=== PATIENT | male | born 1975 | race Caucasian/White ===

== ENCOUNTER 2019-09-16 23:10 | Emergency (ER) | payer SELFPAY ==
--- NOTE | 2019-09-16 23:18 | DI.RAD.S_ITS ---
PROCEDURE: XR CHEST 1V INDICATIONS: chest pain TECHNIQUE: One view of the chest was acquired. COMPARISON: None. FINDINGS: Surgical changes and devices: None. Lungs and pleura: Lungs are clear. Mildly decreased lung volumes. No pleural effusions or pneumothorax. Mediastinum: Mediastinal contours appear normal. Heart size is normal. Bones and chest wall: No suspicious bony lesions. Degenerative changes of the spine and shoulders. Overlying soft tissues appear unremarkable. IMPRESSION: No acute cardiopulmonary findings. Dictated by: Anthony Youngblood M.D. on 09/17/2019 at 7:43 Approved by: Anthony Youngblood M.D. on 09/17/2019 at 7:44
[2019-09-16 23:19] VITALS: BP 153/84; PULSE 88; RESP 21; TEMP 37.2; O2SAT 97; BMI 36.3
[2019-09-16 23:35] LABS: Add Manual Diff / Slide Review NO; Basophils Absolute Auto 100 /uL (0-100); Basophils Percent Auto 0.8 % (0-2); Eosinophils Absolute Auto 200 /uL (0-450); Eosinophils Percent Auto 2.3 % (2-4); Hematocrit 39.5 % (41-53); Hemoglobin 13.9 g/dL (13.5-17.5); Lymphocytes Absolute Auto 2900 /uL (1100-4500); Lymphocytes Percent Auto 26.8 % (25-40); Mean Corpuscular HGB Conc 35.3 % (30-36); Mean Corpuscular Hemoglobin 33.2 PG (26-34); Monocytes Absolute Auto 1000 /uL (0-900); Monocytes Percent Auto 9.7 % (3-14); Neutrophils Absolute Auto 6400 /uL (1500-7000); Neutrophils Percent Auto 60.4 % (50-75); Platelet Count 300 X10^3/uL (150-400); Red Cell Distribution Width 12.1 % (11.6-14.8); White Blood Cell Count 10.6 X10^3/uL (4.5-11.0)
[2019-09-16 23:40] LABS: Prothrombin Time 11.4 SECONDS (10.1-12.7)
[2019-09-16 23:43] LABS: PTT Partial Thromboplastin Tim 31 SECONDS (26.4-36.2)
[2019-09-16 23:46] LABS: Alanine Aminotransferase 34 IU/L (21-72); Albumin 4.7 g/dL (3.5-5.0); Albumin Globulin Ratio 1.3 (1.0-2.8); Alkaline Phosphatase 68 U/L (38-126); Aspartate Aminotransferase 34 IU/L (17-59); BUN Creatinine Ratio 17.3 (6-22); Bilirubin Total 0.4 mg/dL (0.2-1.3); Blood Urea Nitrogen 19 mg/dL (9-20); Calcium 9.4 mg/dL (8.4-10.2); Carbon Dioxide 29 mmol/L (22-32); Chloride 102 mmol/L (98-107); Creatine Kinase 123 U/L (55-170); Estimated Glomerular Filt Rate > 60.0 mL/min (>60); Globulin 3.6 g/dL (1.7-4.1); Glucose 110 mg/dL (70-100); HEMOLYSIS 28 (0-50); Lipase 106 U/L (23-300); Potassium 4.1 mmol/L (3.4-5.1); Sodium 140 mmol/L (137-145); Total Protein 8.3 g/dL (6.3-8.2)
[2019-09-16 23:57] LABS: Troponin I < 0.012 ng/mL (0.01-0.034)
[2019-09-17 00:01] LABS: CKMB % Relative Index 0.3 % (1.5-5.0); Creatine Kinase MB 0.34 ng/mL (<2.37)
--- NOTE | 2019-09-17 00:02 | ED_ITS ---
HPI - Chest Pain General Chief Complaint: Chest Pain Stated Complaint: signs of poss heart attack/tightness in chest Time Seen by Provider: 09/16/19 23:28 Source: patient Mode of arrival: Ambulatory Limitations: no limitations History of Present Illness HPI narrative: 44-year-old male nonsmoker with noncontributory medical history presents with a chief complaint of some sharp and stabbing, reproducible anterior chest pain with some radiation to his left shoulder. He states he has been seeing a chiropractor thinks he has a rib out and has been working on and. He denies any numbness or tingling but does have pain in his left arm. He denies any cardiac equivalent symptoms such as dizziness, weakness or light headedness. He has had no nausea, vomiting or diaphoresis. He denies recent travel or injury. He minutes to having some upper respiratory complaints over the past few days and has sharp and stabbing chest pain worse with deep breath or cough MD complaint: chest pain Onset (ago): day(s) Duration: intermittent and now resolved Pain location: left chest Quality: sharp Pain radiation: LUE Relieving factors: rest Exacerbating factors: inspiration, palpation and movement Treatments prior to arrival chest pain: none Related Data Previous Rx's Medication Instructions Recorded allopurinol 100 mg PO QDAY #90 tab 01/18/18 indomethacin 50 mg PO BIDP PRN #30 cap 01/18/18 famciclovir 500 mg tablet 500 mg PO X1 #2 tab 05/13/18 Allergies Allergy/AdvReac Type Severity Reaction Status Date / Time No Known Drug Allergies Allergy Verified 09/16/19 23:19 Review of Systems Constitutional Constitutional: Denies chills, Denies fatigue, Denies fever(s), Denies frequent falls, Denies lethargy and Denies weakness Eyes Eyes: Denies change in vision, Denies eye discharge, Denies irritation and Denies loss of vision ENT Ears, Nose, Mouth, and Throat: Denies change in voice, Denies dizziness, Denies neck pain, Denies sore throat and Denies throat swelling Cardiovascular Cardiovascular: Reports chest pain, Denies irregular heart rhythm, Denies lightheadedness, Denies palpitations, Denies dyspnea, Denies dyspnea on exertion and Denies orthopnea Respiratory Respiratory: Denies cough, Denies dyspnea, Denies dyspnea on exertion and Denies wheezing Gastrointestinal Gastrointestinal: Denies abdominal pain, Denies change in bowel habits, Denies diarrhea, Denies nausea and Denies vomiting Genitourinary Genitourinary: Denies hematuria, Denies flank pain, Denies urinary incontinence and Denies urinary urgency Musculoskeletal Musculoskeletal: Denies back pain, Denies muscle weakness, Denies neck pain, Denies numbness and Denies tingling Integumentary/Breasts Skin/Breast: Denies pruritus, Denies erythema, Denies rash and Denies wounds Neurologic Neurologic: Denies behavioral changes, Denies confusion, Denies dizziness, Denies frequent falls, Denies loss of vision, Denies numbness, Denies tingling and Denies weakness Psychiatric Psychiatric: Denies anxiety, Denies behavioral changes, Denies confusion, Denies depression, Denies homicidal ideation and Denies suicidal ideation Endocrine Endocrine: Denies fatigue, Denies flushing and Denies palpitations Hematologic/Lymphatic Hematologic/Lymphatic: Denies easy bruising Allergic/Immunologic Allergic/Immunologic: Denies urticaria, Denies throat swelling and Denies wheezing Patient History Social History Smoking Status: Unknown if ever smoked Social History Smoking Status: Unknown if ever smoked alcohol intake frequency: holidays/special occasions only Substance Use Type: does not use Exam Narrative Exam Narrative: GENERAL: [44] year old patient appears stated age. Well- nourished, well-developed patient, in mild distress. HEAD: Atraumatic. Normocephalic. EYES: Pupils equal round and reactive. Extraocular motions intact. No scleral icterus. No injection or drainage. ENT: Nose without bleeding, purulent drainage. Throat without erythema, tonsillar hypertrophy or exudate. Airway patent. NECK: Trachea midline. Non tender CARDIOVASCULAR: Anterior chest pain worse with palpation and inspiration, this reproduces the pain that caused him concern to come in Regular rate and rhythm without murmurs, gallops, or rubs. RESPIRATORY: Clear to auscultation. Breath sounds equal bilaterally. No wheezes, rales, or rhonchi. GASTROINTESTINAL: Abdomen soft, non-tender, nondistended. EXTREMITIES: No edema or joint tenderness. BACK: Nontender without deformity or crepitance. No flank tenderness. NEURO: AOx3. SKIN: No rash or erythema of visible areas Initial Vital Signs Initial Vital Signs: Vital Signs Temperature 99.0 F 09/16/19 23:19 Pulse Rate 88 09/16/19 23:19 Respiratory Rate 21 09/16/19 23:19 Blood Pressure 153/84 H 09/16/19 23:19 Pulse Oximetry 97 09/16/19 23:19 Scores HEART Score Heart Score history: Slightly Suspicious Heart Score EKG: Normal Heart Score Age: 45-64 years old Heart Score risk factors: No known risk factors Heart Score troponin: < or = to normal limit Heart Score Total: 1 Course Orders Ordered: ED Orders 09/16/19 23:18 XR chest 1V Stat EKG-12 Lead Stat 09/16/19 23:30 Complete Blood Count AUTO DIFF Stat Comprehensive Metabolic Panel Stat Lipase Stat Partial Thromboplastin Time Stat Prothrombin Time INR Stat Troponin & CK Cardiac Panel Stat Discontinued Medications Cefazolin Sodium (Keflex 250 Mg Prepack) 1 bottle MISC SEEINSTR ONE Stop: 09/17/19 00:14 Vital Signs Vital signs: Vital Signs - 8 hr 09/16/19 23:19 09/17/19 00:30 09/17/19 01:20 Temperature 99.0 F Pulse Rate 88 77 78 Respiratory Rate 21 17 18 Blood Pressure 153/84 H 122/77 Blood Pressure [Left Arm] 128/78 Pulse Oximetry 97 97 97 MDM - Chest Pain Lab Data Result diagrams: 09/16/19 23:30 09/16/19 23:30 Labs: Lab Results 09/16/19 09/16/19 09/16/19 Range/Units 23:30 23:30 23:30 WBC 10.6 (4.5-11.0) X10^3/uL RBC 4.20 L (4.5-5.9) X10^6/uL Hgb 13.9 (13.5-17.5) g/dL Hct 39.5 L (41-53) % MCV 94.0 (80-100) fL MCH 33.2 (26-34) PG MCHC 35.3 (30-36) % RDW 12.1 (11.6-14.8) % Plt Count 300 (150-400) X10^3/uL Neut % (Auto) 60.4 (50-75) % Lymph % (Auto) 26.8 (25-40) % [place] % (Auto) 9.7 (3-14) % Eos % (Auto) 2.3 (2-4) % Baso % (Auto) 0.8 (0-2) % Neut # (Auto) 6400 (9114-0672) /uL Lymph # (Auto) 2900 (7055-6779) /uL [place] # (Auto) 1000 H (0-900) /uL Eos # (Auto) 200 (0-450) /uL Baso # (Auto) 100 (0-100) /uL PT 11.4 (10.1-12.7) SECONDS INR 1.0 (0.9-1.3) APTT 31 (26.4-36.2) SECONDS Sodium 140 (137-145) mmol/L Potassium 4.1 (3.4-5.1) mmol/L Chloride 102 (98-107) mmol/L Carbon Dioxide 29 (22-32) mmol/L BUN 19 (9-20) mg/dL Creatinine 1.10 (0.66-1.25) mg/dL Estimated GFR > 60.0 (>60) mL/min BUN/Creatinine Ratio 17.3 (6-22) Glucose 110 H (70-100) mg/dL Calcium 9.4 (8.4-10.2) mg/dL Total Bilirubin 0.4 (0.2-1.3) mg/dL AST 34 (17-59) IU/L ALT 34 (21-72) IU/L Alkaline Phosphatase 68 (38-126) U/L Total Creatine Kinase 123 (55-170) U/L CK-MB (CK-2) 0.34 (<2.37) ng/mL CK-MB (CK-2) Rel Index 0.3 L (1.5-5.0) % Troponin I < 0.012 (0.01-0.034) ng/mL Total Protein 8.3 H (6.3-8.2) g/dL Albumin 4.7 (3.5-5.0) g/dL Globulin 3.6 (1.7-4.1) g/dL Albumin/Globulin Ratio 1.3 (1.0-2.8) Lipase 106 (23-300) U/L [facility] Narrative Medical decision making narrative: Multiple etiologies for patient's symptoms considered including: [Multiple causes of chest pain considered including OK, PE, pneumothorax, pneumonia, aortic dissection, and pleurisy. Patient reports no radiation, no diaphoresis, no provocation with exertion, and no vomiting] Patient's symptoms improved or duration of stay with above-stated therapies. Findings and discharge diagnosis discussed with patient/family followed by verbalization of understanding Return precautions discussed with patient/family whom verbalize understanding. Discharge Plan Departure Patient Disposition: Home Clinical Impression: Atypical chest pain Discharge Date/Time: 09/17/19 01:22 Instructions: DI for Atypical Chest Pain Activity Restrictions/Additional Instructions: *You have been diagnosed with [ atypical chest pain ] *What to do: *Take medications as directed: use of anti-inflammatories *Follow up with your primary care provider in 2-3 days, call for an appointment. Let them know you were seen in the Emergency Department and that we ask that you be seen in follow up *Return to ER if you should have any new, worsening or concerning symptoms, such as [worsening pain, nausea, vomiting, or other bothersome symptoms ] Prescriptions: No Action allopurinol 100 MG tablet 100 mg PO QDAY Qty: 90 RF: 3 indomethacin 50 MG capsule 50 mg PO BIDP PRNQty: 30 RF: 2 famciclovir 500 mg tablet 500 mg PO X1 Qty: 2 RF: 0 Referrals: Chrystal Rachel DO [Primary Care Provider] -
[2019-09-17 00:30] VITALS: BP 128/78; PULSE 77; RESP 17; O2SAT 97
--- NOTE | 2019-09-17 01:16 | PC.NURSE ---
Pt also feeling some dizziness and SOB
[2019-09-17 01:20] VITALS: BP 122/77; PULSE 78; RESP 18; O2SAT 97
== END 2019-09-17 01:22 | disposition home or self-care (01) ==
PROVIDERS: Emergency Provider Emergency Medicine; PCP Family Medicine
DX: R07.89 Other chest pain (principal)
CPT/HCPCS: 36415; 71045; 80053; 82550; 82553; 83690; 84484; 85025; 85610; 85730; 93005; 99282; 99285

== ENCOUNTER → 2023-09-09 10:03 | Outpatient (CLI) | payer OTHER, MEDICAID, SELFPAY ==
--- NOTE | 2023-09-09 10:04 | DI.RAD.S_ITS ---
PROCEDURE: XR HAND LT MIN 3V INDICATIONS: thumb pain, fall while running TECHNIQUE: 3 views of the hand(s) acquired. COMPARISON: None. FINDINGS: Bones: No fractures or dislocations. Carpal bones are normally aligned. No suspicious bony lesions. Soft tissues: No suspicious soft tissue calcifications. IMPRESSION: Occult in Dictated by: Yanci Biswas M.D. on 09/09/2023 at 10:37 Approved by: Yanci Biswas M.D. on 09/09/2023 at 10:38
--- NOTE | 2023-09-09 10:04 | DI.RAD.S_ITS ---
PROCEDURE: XR ELBOW LT MIN 3V INDICATIONS: elbow prox radius pain/swelling, fall TECHNIQUE: 4 views of the elbow were acquired. COMPARISON: None. FINDINGS: Bones: There is a nondisplaced vertical lucency extending into the articular surface of the proximal radius. Soft tissues: Mild elbow joint effusion. No suspicious soft tissue calcifications. IMPRESSION: Nondisplaced intra-articular proximal radial fracture. Dictated by: Yanci Biswas M.D. on 09/09/2023 at 10:36 Approved by: Yanci Biswas M.D. on 09/09/2023 at 10:37
== END ==
PROVIDERS: Referring Provider Physician Assistant; Visit Provider Physician Assistant
DX: M25.529 Pain in unspecified elbow (principal); M25.429 Effusion, unspecified elbow; W19.XXXA Unspecified fall, initial encounter; Y93.02 Activity, running; S52.182A Other fracture of upper end of left radius, initial encounter for closed fracture
CPT/HCPCS: 73080; 73130